=== PATIENT | female | born 1965 | race Caucasian/White ===

== ENCOUNTER 2017-09-02 01:25 | Emergency (ER) | payer MEDICAID ==
[2017-09-02 01:29] VITALS: BMI 27.4
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
[2017-09-02 02:15] LABS: BASOPHILS # (AUTO) 0.1 X10^3/uL (0.0-0.1); EOSINOPHILS # (AUTO) 0.4 x10^3/uL (0.0-0.2); EOSINOPHILS % (AUTO) 3.2 % (0.9-2.9); HEMATOCRIT 35.1 % (36.0-47.0); HEMOGLOBIN 12.1 g/dL (12.0-16.0); LYMPHOCYTES # (AUTO) 4.4 X10^3/uL (1.3-2.9); LYMPHOCYTES % (AUTO) 32.9 % (21.0-51.0); MEAN CORPUSCULAR HEMOGLOBIN 31.3 pg (27.0-34.0); MEAN CORPUSCULAR HGB CONC 34.4 g/dL (33.0-35.0); MONOCYTES # (AUTO) 0.7 x10^3/uL (0.3-0.8); MONOCYTES % (AUTO) 5.6 % (0.0-13.0); NEUTROPHILS # (AUTO) 7.6 x10^3/uL (2.2-4.8); NEUTROPHILS % (AUTO) 57.3 % (42.0-75.0); PLATELET COUNT 326 X10^3/uL (150.0-450.0); RED BLOOD COUNT 3.86 X10^6/uL (3.5-5.4); RED CELL DISTRIBUTION WIDTH 12.4 % (11.6-16.5); WHITE BLOOD COUNT 13.3 X10^3/uL (3.6-10.0)
[2017-09-02 02:24] LABS: ALANINE AMINOTRANSFERASE 42 Units/L (12-78); ALBUMIN 3.4 g/dL (3.4-5.0); ALKALINE PHOSPHATASE 140 Units/L (46-116); ASPARTATE AMINO TRANSFERASE 21 Units/L (15-37); BLOOD UREA NITROGEN 16 mg/dL (7-18); CALCIUM 8.7 mg/dL (8.5-10.1); CARBON DIOXIDE 27.8 mmol/L (21-32); CHLORIDE 103 mmol/L (98-107); COR NA(FOR HYPERGLY) 141 mmol/L (136-145); SODIUM 139 mmol/L (136-145); TOTAL PROTEIN 7.2 g/dL (6.4-8.2); eGFR BLACK RACES > 60 (>60); eGFR NON BLACK RACES > 60 (>60)
[2017-09-02 03:45] VITALS: BP 142/75
== END 2017-09-02 03:40 | disposition home or self-care (01) ==
LOC: ER 01:25
DX: E16.2 Hypoglycemia, unspecified (principal)
CPT/HCPCS: 36415; 80053; 85025; 99282; 99283

== ENCOUNTER 2017-09-13 15:15 | Emergency (ER) | payer MEDICAID, OTHER ==
--- NOTE | 2017-09-13 15:32 | DR.PSYCH ---
HPI - Reviewed Nurses Notes Review: Yes PMH - PMH Past Medical History: Angina, Depression, Diabetes, Dyslipidemia, Hypertension Past Surgical History: Yes Surgical History: , Hysterectomy - Family History Family Medical History: Diabetes Mellitus, Coronary Artery Disease, Hypertension - Social History Do you use any recreational Drugs:: No PE - Vitals Vitals: Temperature 98.3 F Pulse Rate [Left Brachial] 89 Pulse Rate 95 Respiratory Rate 18 Blood Pressure [Right Arm] 142/64 Blood Pressure 175/82 O2 Sat by Pulse Oximetry 96 ROR - Labs Reviewed Result Diagrams: 09/13/17 15:18 09/13/17 15:18 Laboratory: WBC 20.9 X10^3/uL (3.6-10.0) H 09/13/17 15:18 RBC 4.16 X10^6/uL (3.5-5.4) 09/13/17 15:18 Hgb 12.7 g/dL (12.0-16.0) 09/13/17 15:18 Hct 37.5 % (36.0-47.0) 09/13/17 15:18 MCV 90.2 fL (80.0-100.0) 09/13/17 15:18 MCH 30.6 pg (27.0-34.0) 09/13/17 15:18 MCHC 33.9 g/dL (33.0-35.0) 09/13/17 15:18 RDW 12.6 % (11.6-16.5) 09/13/17 15:18 Plt Count 380 X10^3/uL (150.0-450.0) 09/13/17 15:18 MPV 8.6 fL (7.4-11.0) 09/13/17 15:18 Neut % 74.8 % (42.0-75.0) 09/13/17 15:18 Lymph % 17.9 % (21.0-51.0) L 09/13/17 15:18 [place] % 5.7 % (0.0-13.0) 09/13/17 15:18 Eos % 1.0 % (0.9-2.9) 09/13/17 15:18 Baso % 0.6 % (0.2-1.0) 09/13/17 15:18 Neut # 15.6 x10^3/uL (2.2-4.8) H 09/13/17 15:18 Lymph # 3.7 X10^3/uL (1.3-2.9) H 09/13/17 15:18 [place] # 1.2 x10^3/uL (0.3-0.8) H 09/13/17 15:18 Eos # 0.2 x10^3/uL (0.0-0.2) 09/13/17 15:18 Baso # 0.1 X10^3/uL (0.0-0.1) 09/13/17 15:18 Absolute Nucleated RBC 0.0 /100WBC 09/13/17 15:18 Sodium 143 mmol/L (136-145) 09/13/17 15:18 Corrected Sodium 145 mmol/L (136-145) 09/13/17 15:18 Potassium 3.6 mmol/L (3.5-5.1) 09/13/17 15:18 Chloride 104 mmol/L (98-107) 09/13/17 15:18 Carbon Dioxide 20.6 mmol/L (21-32) L 09/13/17 15:18 BUN 27 mg/dL (7-18) H 09/13/17 15:18 Creatinine 1.40 mg/dL (0.55-1.02) H 09/13/17 15:18 Est GFR (MDRD) Af Amer 51 (>60) L 09/13/17 15:18 Est GFR (MDRD) Non-Af 42 (>60) L 09/13/17 15:18 Glucose 184 mg/dL (65-99) H 09/13/17 15:18 Lactic Acid 1.9 mmol/L (0.4-2.0) 09/13/17 16:48 Calcium 9.6 mg/dL (8.5-10.1) 09/13/17 15:18 Corrected Calcium TNP 09/13/17 15:18 Total Bilirubin 0.30 mg/dL (0.2-1.0) 09/13/17 15:18 AST 23 Units/L (15-37) 09/13/17 15:18 ALT 34 Units/L (12-78) 09/13/17 15:18 Alkaline Phosphatase 123 Units/L (46-116) H 09/13/17 15:18 Total Protein 8.3 g/dL (6.4-8.2) H 09/13/17 15:18 Albumin 4.0 g/dL (3.4-5.0) 09/13/17 15:18 Globulin 4.3 g/dL (2.5-4.5) 09/13/17 15:18 Albumin/Globulin Ratio 0.9 Ratio (1.1-2.1) L 09/13/17 15:18 Specimen Type Random urine 09/13/17 16:26 Urine Color Yellow (YELLOW) 09/13/17 16:26 Urine Appearance Hazy (CLEAR) 09/13/17 16:26 Urine pH 5.0 (5.0 - 8.0) 09/13/17 16:26 Ur Specific [place] 1.025 (1.000-1.030) 09/13/17 16:26 Urine Protein 2+ (NEGATIVE) 09/13/17 16:26 Urine Glucose (UA) 1+ (NEGATIVE) 09/13/17 16:26 Urine Ketones 2+ (NEGATIVE) 09/13/17 16:26 Urine Occult Blood 1+ (NEGATIVE) 09/13/17 16:26 Urine Nitrite Negative (NEGATIVE) 09/13/17 16:26 Urine Bilirubin Negative (NEGATIVE) 09/13/17 16:26 Urine Urobilinogen Normal (NORMAL) 09/13/17 16:26 Ur Leukocyte Esterase 2+ (NEGATIVE) 09/13/17 16:26 Urine RBC 2-3 /HPF (NEGATIVE) 09/13/17 16:26 Urine WBC 4-6 /HPF (NEGATIVE) 09/13/17 16:26 Ur Squamous Epith Cells Few /HPF (NEGATIVE) 09/13/17 16:26 Urine Bacteria 2+ /HPF (NEGATIVE) 09/13/17 16:26 Hyaline Casts Few /LPF (NEGATIVE) 09/13/17 16:26 Ur Culture Indicated? No/not indicated 09/13/17 16:26 Salicylates < 2.8 mg/dL (2.8-20) L 09/13/17 15:18 Urine Opiates Screen Negative (NEG=<300) 09/13/17 16:26 Urine Methadone Screen Negative (NEG=<300) 09/13/17 16:26 Acetaminophen 0.0 ug/mL (10-30) L 09/13/17 15:18 Ur Barbiturates Screen Positive (NEG=<200) A 09/13/17 16:26 Ur Phencyclidine Scrn Negative (NEG=<25) 09/13/17 16:26 Ur Amphetamines Screen Negative (NEG=<1000) 09/13/17 16:26 U Benzodiazepines Scrn Positive (NEG=<200) A 09/13/17 16:26 Urine Cocaine Screen Negative (NEG=<300) 09/13/17 16:26 U Marijuana (THC) Screen Negative (NEG=<50) 09/13/17 16:26 Ethyl Alcohol mg/dL < 3 mg/dL (0-19.9) 09/13/17 15:18 Acetone, Semi-Quant Negative (NEGATIVE) 09/13/17 15:18 - Discharge Plan Condition: Stable - Follow ups/Referrals Follow ups/Referrals: NFD,None [Primary Care Provider] - 3 days - Instructions
[2017-09-13 15:45] LABS: BASOPHILS # (AUTO) 0.1 X10^3/uL (0.0-0.1); BASOPHILS % (AUTO) 0.6 % (0.2-1.0); EOSINOPHILS # (AUTO) 0.2 x10^3/uL (0.0-0.2); HEMATOCRIT 37.5 % (36.0-47.0); HEMOGLOBIN 12.7 g/dL (12.0-16.0); LYMPHOCYTES # (AUTO) 3.7 X10^3/uL (1.3-2.9); LYMPHOCYTES % (AUTO) 17.9 % (21.0-51.0); MEAN CORPUSCULAR HEMOGLOBIN 30.6 pg (27.0-34.0); MEAN CORPUSCULAR HGB CONC 33.9 g/dL (33.0-35.0); MEAN CORPUSCULAR VOLUME 90.2 fL (80.0-100.0); MEAN PLATELET VOLUME 8.6 fL (7.4-11.0); MONOCYTES # (AUTO) 1.2 x10^3/uL (0.3-0.8); MONOCYTES % (AUTO) 5.7 % (0.0-13.0); NEUTROPHILS # (AUTO) 15.6 x10^3/uL (2.2-4.8); NEUTROPHILS % (AUTO) 74.8 % (42.0-75.0); PLATELET COUNT 380 X10^3/uL (150.0-450.0); RED BLOOD COUNT 4.16 X10^6/uL (3.5-5.4); RED CELL DISTRIBUTION WIDTH 12.6 % (11.6-16.5); WHITE BLOOD COUNT 20.9 X10^3/uL (3.6-10.0)
[2017-09-13 15:53] LABS: ALANINE AMINOTRANSFERASE 34 Units/L (12-78); ALKALINE PHOSPHATASE 123 Units/L (46-116); ASPARTATE AMINO TRANSFERASE 23 Units/L (15-37); BLOOD ALCOHOL < 3 mg/dL (0-19.9); BLOOD UREA NITROGEN 27 mg/dL (7-18); CALCIUM 9.6 mg/dL (8.5-10.1); CARBON DIOXIDE 20.6 mmol/L (21-32); CHLORIDE 104 mmol/L (98-107); COR NA(FOR HYPERGLY) 145 mmol/L (136-145); SODIUM 143 mmol/L (136-145); TOTAL PROTEIN 8.3 g/dL (6.4-8.2); eGFR BLACK RACES 51 (>60); eGFR NON BLACK RACES 42 (>60)
[2017-09-13 15:55] LABS: SALICYLATE < 2.8 mg/dL (2.8-20)
--- NOTE | 2017-09-13 15:59 | CT ---
CT HEAD WITHOUT CONTRAST CLINICAL HISTORY: 52-year-old female with altered mental status. COMPARISON: None. TECHNIQUE: Multiple, non-contrasted axial CT images were obtained from the skull base to the cranial vertex. Coronal and sagittal reformats were performed. FINDINGS: There are no abnormal intra- or extra-axial fluid collections, midline shift, or mass effec t. Valladares-white differentiation is normal. Global cortical involutional changes are present that are mi ldly advanced for the patient's stated age. The ventricular system is mildly enlarged but commensurat e with the degree of sulcal prominence. Periventricular and supraventricular white matter hypodensity is present that is nonspecific in appearance, but most likely to represent microvascular ischemic ch anges. Atherosclerotic vascular calcification is present within the carotid siphons. Effervescent mucosal thickening throughout the left frontal sinus, left frontal recess, left ethmoid air cells and left maxillary sinus with trace mucosal thickening right maxillary sinus. Remaining par anasal sinuses, mastoid air cells and tympanic cavities are clear. IMPRESSION: 1. No definite evidence of an acute intracranial process. 2. Mucosal thickening within the left-sided paranasal sinuses as described, correlate for acute sinus itis. 3. Mild microvascular white matter ischemic changes, with associated volume loss. Reported By:
[2017-09-13 16:44] LABS: BILIRUBIN,URINE NEGATIVE (NEGATIVE); BLOOD/HEMOGLOBIN,URINE 1+ (NEGATIVE); GLUCOSE, URINE 1+ (NEGATIVE); KETONES,URINE 2+ (NEGATIVE); LEUKOCYTE ESTERASE ,URINE 2+ (NEGATIVE); NITRITES,URINE NEGATIVE (NEGATIVE); PROTEIN,URINE 2+ (NEGATIVE); UROBILINOGEN,URINE NORMAL (NORMAL)
[2017-09-13 16:54] LABS: APPEARANCE,URINE HAZY (CLEAR); BACTERIA,URINE 2+ /HPF (NEGATIVE); COLOR,URINE YELLOW (YELLOW); HYALINE CASTS, URINE FEW /LPF (NEGATIVE); SQUAMOUS EPITHELIAL CELL,UR FEW /HPF (NEGATIVE)
--- NOTE | 2017-09-13 19:32 | RAD ---
HISTORY: 52-year-old female with shortness of breath. Study: Frontal view of the chest. Comparison: Chest radiograph 07/17/2016 Findings: Bilateral breast implants. The trachea is midline. The cardiac silhouette is unremarkable. The lungs are clear without focal c onsolidation, effusion or pneumothorax. Soft tissues are unremarkable. Osseous structures are unrema rkable. IMPRESSION: 1. No acute cardiopulmonary disease. Reported By:
[2017-09-13] MEDS ORDERED: ZOSYN VIAL 3.375 GM 3.375 GM in NS 100 ML IV + SPIKE MINIBAG* 100 ML IV ONE ×2 (20:03→20:04)
[2017-09-13] MEDS: NS 1000 ML 1,000 ML IV SCH (20:34)
[2017-09-14] MEDS: NS 1000 ML 1,000 ML IV SCH (02:55)
[2017-09-14 04:36] LABS: BASOPHILS # (AUTO) 0.1 X10^3/uL (0.0-0.1); BASOPHILS % (AUTO) 0.5 % (0.2-1.0); EOSINOPHILS # (AUTO) 0.3 x10^3/uL (0.0-0.2); EOSINOPHILS % (AUTO) 2.8 % (0.9-2.9); HEMOGLOBIN 10.8 g/dL (12.0-16.0); LYMPHOCYTES # (AUTO) 3.1 X10^3/uL (1.3-2.9); MEAN CORPUSCULAR HEMOGLOBIN 31.5 pg (27.0-34.0); MEAN CORPUSCULAR HGB CONC 34.9 g/dL (33.0-35.0); MEAN CORPUSCULAR VOLUME 90.3 fL (80.0-100.0); MEAN PLATELET VOLUME 8.6 fL (7.4-11.0); MONOCYTES % (AUTO) 8.9 % (0.0-13.0); NEUTROPHILS # (AUTO) 6.6 x10^3/uL (2.2-4.8); NEUTROPHILS % (AUTO) 59.8 % (42.0-75.0); PLATELET COUNT 266 X10^3/uL (150.0-450.0); RED BLOOD COUNT 3.43 X10^6/uL (3.5-5.4); RED CELL DISTRIBUTION WIDTH 12.5 % (11.6-16.5)
[2017-09-14 04:59] LABS: ALANINE AMINOTRANSFERASE 28 Units/L (12-78); ALKALINE PHOSPHATASE 94 Units/L (46-116); ASPARTATE AMINO TRANSFERASE 17 Units/L (15-37); BLOOD UREA NITROGEN 20 mg/dL (7-18); CALCIUM 8.1 mg/dL (8.5-10.1); CHLORIDE 106 mmol/L (98-107); COR CA(FOR HYPOALB) 8.9 mg/dL (8.5-10.1); CREATININE 0.75 mg/dL (0.55-1.02); MAGNESIUM 1.3 mg/dL (1.7-2.9); SODIUM 143 mmol/L (136-145); TOTAL PROTEIN 6.5 g/dL (6.4-8.2); eGFR BLACK RACES > 60 (>60); eGFR NON BLACK RACES > 60 (>60)
[2017-09-14 05:09] LABS: CKMB % 1.2 % (<4); CREATINE KINASE 241 Units/L (26-192); TROPONIN I < 0.02 ng/mL (0-1.5)
[2017-09-14] MEDS ORDERED: MAGNESIUM SULFATE 1 GM/100 mL PREMIX 1 GM/100 ML BAG IV PRN ×2 (05:35→06:29)
[2017-09-14] MEDS: MAG-OX TAB PO PRN (05:57)
[2017-09-14] MEDS ORDERED: K-RIDER 10 MEQ/NS 100 ML 10 MEQ/100 ML BAG IV PRN (06:29)
[2017-09-14] MEDS ORDERED: MAG-OX TAB PO PRN (06:29)
[2017-09-14] MEDS ORDERED: POTASSIUM CHL 40 MEQ/NS 0.45% 500 ML IV PRN (06:29)
[2017-09-14] MEDS ORDERED: POTASSIUM CHL 60 MEQ/NS 0.45% 500 ML IV PRN (06:29)
[2017-09-14] MEDS ORDERED: POTASSIUM CHLORIDE LIQ 20 MEQ UDC PO PRN (06:29)
[2017-09-14] MEDS ORDERED: VALIUM INJ ONE (06:55)
[2017-09-14] MEDS: VALIUM INJ IVP PRN ×2 (07:12→22:16)
[2017-09-14] MEDS ORDERED: GLUCOPHAGE ONE ×2 (09:54→20:09)
[2017-09-14] MEDS: LR 1000 ML IV 1,000 ML IV SCH ×3 (10:00→20:49)
[2017-09-14] MEDS ORDERED: GLUCOPHAGE PO SCH ×2 (10:00)
[2017-09-14] MEDS: ZOSYN VIAL 3.375 GM 3.375 GM in NS 100 ML IV + SPIKE MINIBAG* 100 ML IV SCH ×3 (10:01→21:02)
[2017-09-14] MEDS: ACTOS PO SCH (10:04)
[2017-09-14] MEDS: GLUCOPHAGE PO SCH ×2 (10:05→20:49)
[2017-09-14] MEDS: K-LYTE EFFERVESCENT PO PRN (11:33)
[2017-09-15] MEDS ORDERED: NS 100 ML IV 100 ML IV ONE (04:29)
[2017-09-15] MEDS ORDERED: ZOSYN VIAL 3.375 GM IV ONE (04:29)
[2017-09-15 04:44] LABS: BASOPHILS # (AUTO) 0.1 X10^3/uL (0.0-0.1); BASOPHILS % (AUTO) 0.7 % (0.2-1.0); EOSINOPHILS # (AUTO) 0.4 x10^3/uL (0.0-0.2); EOSINOPHILS % (AUTO) 4.6 % (0.9-2.9); HEMOGLOBIN 9.6 g/dL (12.0-16.0); LYMPHOCYTES # (AUTO) 3.3 X10^3/uL (1.3-2.9); LYMPHOCYTES % (AUTO) 40.2 % (21.0-51.0); MEAN CORPUSCULAR HEMOGLOBIN 31.4 pg (27.0-34.0); MEAN CORPUSCULAR HGB CONC 34.4 g/dL (33.0-35.0); MEAN CORPUSCULAR VOLUME 91.2 fL (80.0-100.0); MONOCYTES # (AUTO) 0.6 x10^3/uL (0.3-0.8); MONOCYTES % (AUTO) 7.3 % (0.0-13.0); NEUTROPHILS # (AUTO) 3.9 x10^3/uL (2.2-4.8); NEUTROPHILS % (AUTO) 47.2 % (42.0-75.0); PLATELET COUNT 237 X10^3/uL (150.0-450.0); RED BLOOD COUNT 3.07 X10^6/uL (3.5-5.4); RED CELL DISTRIBUTION WIDTH 12.5 % (11.6-16.5); WHITE BLOOD COUNT 8.3 X10^3/uL (3.6-10.0)
[2017-09-15 04:52] LABS: ALANINE AMINOTRANSFERASE 25 Units/L (12-78); ALBUMIN 2.5 g/dL (3.4-5.0); ALKALINE PHOSPHATASE 80 Units/L (46-116); ASPARTATE AMINO TRANSFERASE 16 Units/L (15-37); BLOOD UREA NITROGEN 7 mg/dL (7-18); CALCIUM 8.1 mg/dL (8.5-10.1); CARBON DIOXIDE 29.5 mmol/L (21-32); CHLORIDE 107 mmol/L (98-107); COR CA(FOR HYPOALB) 9.3 mg/dL (8.5-10.1); MAGNESIUM 1.4 mg/dL (1.7-2.9); SODIUM 143 mmol/L (136-145); TOTAL PROTEIN 5.7 g/dL (6.4-8.2); eGFR BLACK RACES > 60 (>60); eGFR NON BLACK RACES > 60 (>60)
[2017-09-15] MEDS: MAG-OX TAB PO PRN (05:55)
[2017-09-15] MEDS: K-LYTE EFFERVESCENT PO PRN (05:56)
[2017-09-15] MEDS: ZOSYN VIAL 3.375 GM 3.375 GM in NS 100 ML IV + SPIKE MINIBAG* 100 ML IV SCH (05:56)
[2017-09-15] MEDS: LR 1000 ML IV 1,000 ML IV SCH ×2 (05:57→13:40)
[2017-09-15 07:24] VITALS: BMI 27.4
[2017-09-15] MEDS ORDERED: SNACK - Diabetic Appropriate PO SCH (09:15)
[2017-09-15] MEDS ORDERED: GLUCOPHAGE ONE (09:34)
[2017-09-15] MEDS: GLUCOPHAGE PO SCH (09:47)
[2017-09-15] MEDS: ACTOS PO SCH (09:47)
[2017-09-15 13:40] VITALS: BP 116/61
== END 2017-09-15 13:35 | disposition home or self-care (01) ==
LOC: ER 15:19 → ICU 19:55
PROVIDERS: ADMIT Obstetrics & Gynecology Obstetrics; ATTEND Obstetrics & Gynecology Obstetrics
DX: R41.82 Altered mental status, unspecified (principal); J01.80 Other acute sinusitis; E86.0 Dehydration; F10.231 Alcohol dependence with withdrawal delirium; F19.90 Other psychoactive substance use, unspecified, uncomplicated; E78.2 Mixed hyperlipidemia; I10 Essential (primary) hypertension; E11.65 Type 2 diabetes mellitus with hyperglycemia; D72.828 Other elevated white blood cell count; R94.4 Abnormal results of kidney function studies
CPT/HCPCS: 36415; 70450; 71010; 80053; 80307; 80320; 81001; 82009; 82550; 82553; 83605; 83735; 84484; 85025; 85610; 85730; 87040; 93005; 93010; 96365; 99283; 99284; A4222; G0378; G0434; G6038; G6039; G6040; J2543; J3360; J7120